=== PATIENT | female | born 1990 | race Caucasian/White ===

== ENCOUNTER → 2017-07-08 | Outpatient (CLI) | payer OTHER ==
[2013-12-19 16:31] VITALS: BMI 29.1
[~2017-07-08] MED LIST: AMOX-559 PO; CIPR-344 PO; CRAN500T; DOCO200C PO; HYDR-6018 PR; IBUP800T37 PO; Lanolin TP; NITR-105 PO; ONDA4TAB PO; PREN-75 PO; SULF-198 PO; TUCKS TP; [UNRECOGNIZED DRUG - REMARK]
== END ==
LOC: LAB 09:21
PROVIDERS: ATTEND Obstetrics & Gynecology
DX: S30.821A Blister (nonthermal) of abdominal wall, initial encounter (principal)
CPT/HCPCS: 87252; 87253

== ENCOUNTER → 2017-08-01 | Outpatient (CLI) | payer OTHER ==
[2013-12-19 16:31] VITALS: BMI 29.1
--- NOTE | 2017-08-01 13:46 | RADIOLOGY IMAGING REPORT ---
FACILITY: [facility] - [place] PATIENT NAME: Mehrdad Trejo : 1990 MR: [id number] V: [id number] EXAM DATE: ORDERING PHYSICIAN: EVELIN JONES TECHNOLOGIST: Location: [facility] [place] Patient: Mehrdad Trejo : 1990 Visit/Account:[id number] Date of Sevice: 08/01/2017 OB ANATOMICAL SURVEY HISTORY: Anatomic survey COMPARISON: None. TECHNIQUE: Transabdominal imaging was performed for assessment of the fetus and maternal pelvic s tructures. Transvaginal imaging was not performed. FINDINGS: Intrauterine gestations: One. presentation: Cephalic. heart rate: 149 bpm. Amniotic fluid volume: Normal; DAVID 12.2 cm; MVP 3.5 cm. Placenta: Posterior. Uterus: Gravid, otherwise grossly unremarkable where visualized. Maternal adnexa/ovaries: Grossly unremarkable, ovaries not visualized. Cervix: Grossly long and closed. Gestational Parameters: BPD: 4.3 HC: 16.7 AC: 14.7 FL: 3.3 Average ultrasound age (AUA): 19 weeks/ five days Estimated age based on LMP: 19 weeks/ five days Estimated weight (EFW): 325 grams +/- 48 grams Anatomic Survey: Intracranial structures, 4-chamber heart, stomach, kidneys, urinary bladder, spine, 3-vessel cord and cord insertion are unremarkable. Two upper and two lower extremities visualized. IMPRESSION: Single viable fetus in cephalic presentation with an estimated gestational age of 19 weeks and five d ays. Estimated weight 325 g +/- 40 8 g Report Dictated By: Bernice King MD at 08/01/2017 1:38 PM Report E-Signed By: Bernice King MD at 08/01/2017 1:42 PM WSN:[email or web address]
== END ==
LOC: RAD 08:51
PROVIDERS: ATTEND Obstetrics & Gynecology
DX: Z02.9 Encounter for administrative examinations, unspecified (principal)
CPT/HCPCS: 76811

== ENCOUNTER → 2017-09-27 | Outpatient (CLI) | payer OTHER ==
[2013-12-19 16:31] VITALS: BMI 29.1
[~2017-09-27] MED LIST changes: +DIPH0.5D12 IM
[2017-09-27 14:33] LABS: PLATELET COUNT, AUTOMATED 295 K/uL (150-450)
== END ==
LOC: LAB 08:02
PROVIDERS: ATTEND Obstetrics & Gynecology
DX: Z34.90 Encounter for supervision of normal pregnancy, unspecified, unspecified trimester (principal)
CPT/HCPCS: 36415; 82950; 85025

== ENCOUNTER → 2017-11-24 | Outpatient (CLI) | payer OTHER ==
[2013-12-19 16:31] VITALS: BMI 29.1
[~2017-11-24] MED LIST changes: -PREN-75 PO; +PREN1TAB29 PO; +VALA500T66 PO
== END ==
LOC: LAB 08:26
PROVIDERS: ATTEND Student in an Organized Health Care Education/Training Program
DX: Z34.93 Encounter for supervision of normal pregnancy, unspecified, third trimester (principal)
CPT/HCPCS: 87081

== ENCOUNTER 2017-12-07 10:20 | Outpatient (CLI) | payer OTHER ==
[~2017-12-07] VITALS: Ht 167.6 cm; Wt 88.0 kg
[2017-12-07 10:50] VITALS: BP 133/88; Ht 167.6 cm; Wt 88.0 kg
== END 2017-12-07 11:28 | disposition home or self-care (01) ==
LOC: L&D 10:20 → OB 10:20 → UNDOADMIN 10:20 → OB 10:20 → L&D 11:28 → UNDODISIN 11:28 → EDSTATUS 12-08 14:14
PROVIDERS: ATTEND Obstetrics & Gynecology
DX: O47.1 False labor at or after 37 completed weeks of gestation (principal); Z3A.38 38 weeks gestation of pregnancy
CPT/HCPCS: 84112; 99213

== ENCOUNTER 2017-12-17 17:35 | Inpatient (IN) | payer OTHER ==
[~2017-12-17] VITALS: Ht 167.6 cm; Wt 86.2 kg
[2017-12-17] MEDS ORDERED: LR(*) 1000 ML BAG 1,000 ML IV PRN (17:49)
[2017-12-17] MEDS ORDERED: OXYTOCIN 30 UNIT/D5LR 500 ML 500 ML IV PRN (17:49)
[2017-12-17] MEDS ORDERED: DLR(*) 1000 ML BAG 1,000 ML IV PRN (17:49)
[2017-12-17] MEDS ORDERED: FAMOTIDINE(*) 20MG/50ML PREMIX 50 ML IVPB PRN (17:49)
[2017-12-17] MEDS ORDERED: LIDOCAINE/PF 2% 200MG/10ML AMP 200 MG/10 ML AMPUL EPI PRN (17:50)
[2017-12-17] MEDS ORDERED: LIDO/EPI 2% MPF 1:200,000 20ML EPI PRN (17:50)
[2017-12-17] MEDS ORDERED: FENTANYL/ROPIVACAINE 100 ML BAG EPI PRN (17:50)
[2017-12-17] MEDS ORDERED: BUPIVACAINE 0.25% MPF INJ EPI PRN (17:50)
[2017-12-17] MEDS ORDERED: cefOXitin/DEX(*) 2GM/50ML PREM 50 ML IVPB PRN (17:50)
[2017-12-17] MEDS ORDERED: fentaNYL CITR 100 MCG/2 ML AMP IVP PRN (17:50)
[2017-12-17] MEDS ORDERED: FLUSH 10 ML SYR IVP PRN (17:50)
[2017-12-17] MEDS ORDERED: METOCLOPRAMIDE 10 MG/2 ML SDV IVP PRN (17:50)
[2017-12-17] MEDS ORDERED: fentaNYL CITR 100 MCG/2 ML AMP IT PRN (17:50)
[2017-12-17] MEDS ORDERED: BUPIVACAINE 0.5% INJ 30ML VIAL EPI PRN (17:50)
[2017-12-17] MEDS ORDERED: LIDOCAINE 1% LOCAL 300 MG/30ML INJ PRN (17:50)
[2017-12-17 18:00] VITALS: BP 146/87; Ht 167.6 cm; Wt 86.2 kg
[2017-12-17] MEDS ORDERED: LR(*) 1000 ML BAG 1,000 ML IV ONE (18:00)
[2017-12-17] MEDS ORDERED: EPIDURAL KEYS XX PRN (18:00)
[2017-12-17 18:36] LABS: PLATELET COUNT, AUTOMATED 275 K/uL (150-450)
[2017-12-17] MEDS ORDERED: GLYCERIN/WITCH HAZEL LEAF 1 PK TP PRN (18:40)
[2017-12-17] MEDS ORDERED: ACETAMINOPHEN 325 MG TAB PO PRN (18:40)
[2017-12-17] MEDS ORDERED: BENZOCAINE 20% 60 ML BTL TP PRN (18:40)
[2017-12-17] MEDS ORDERED: HYDROCORTISONE 2.5% CR 30GM TB PR PRN (18:40)
[2017-12-17] MEDS ORDERED: APAP/HYDROCODONE 325/5 TAB PO PRN (18:40)
[2017-12-17] MEDS ORDERED: MAGNESIUM HYDROXIDE* 30ML UDCP PO PRN (18:40)
[2017-12-17] MEDS ORDERED: LANOLIN OINT 7 GM TUBE TP PRN (18:40)
--- NOTE | 2017-12-17 18:47 | OB Delivery Note ---
Delivery Note Vaginal Delivery Type: Spont. Vaginal Delivery Delivery Time: 18:26 Estimated Gestational Age(wks): 39 Delivery Anesthesia: Other (SPINAL) Sex: Male [place] Apgars: 1 Minute (8), 5 Minute (9) Estimated Blood Loss: 50 Delivery Complications: Precipitous Notes: Presented in active labor, 4 cm. Precipitously delivered shortly thereafter. MARCELLE position with compound presentation but shoulders delivered without significant manipulation over intact perineum. Placenta delivered spontaneous and intact. No complications. Seating Upholsterer in Attendence: No Copies to: BAYLEE ROUSSEAU MD ; BAYLEE ROUSSEAU MD Dec 17, 2017 18:47
--- NOTE | 2017-12-17 18:49 | History & Physical ---
History of Present Illness Age of Patient: 27 : 2 Para or TPAL: 1 Estimated Gestational Age: 39 Chief Complaint labor History of Present Illness Presented in active labor and delivered precipitously. Care by IMG. Please see electronic records. History Allergies: Coded Allergies: No Known Drug Allergies (Unverified , 06/06/13) Family History: FH: liver disease FATHER FH: renal failure MOTHER No pertinent family history BROTHER OR SISTER BROTHER OR SISTER Pyelonephritis MOTHER Med Rec Home Meds Active Scripts Valacyclovir Hcl (VALTREX) 500 Mg Tablet, 500 MG PO BID, #66 TAB 1 Refill Prov:CHESTER SMART 11/24/17 Vit#96/Ferrous Fum/Fa ( TABLET) 1 Each Tab, 1 EACH PO DAILY for 30 Days, TAB Prov:STACIE MENDEZ MD 12/20/13 Review of Systems All Systems Reviewed/Normal: Yes, Except as Noted Exam General Exam General Apperance: Alert/Awake/No Acute Distress Neuro: No Gross deficits Eyes: Normal Extraocular Movement & Vison Cardiovascular: Regular Rate and Rhythm Respiratory: No Respiratory Distress, Clear to Auscultation Abdomen: Soft, Non-Tender, Non-Distended Extremities: No Cyanosis,Clubbing or Edema Integumentary: Skin Intact without Lesions or Rash Psychological: Alert & Oriented X3, Appropriate Mood & Affect Cervical Dialation: 10 Cervical Effacement (%): 100 Cervical Consistency: Soft Station: +2 Presentation: Vertex Fetus Heart Tone Variabilty: Moderate FHT Accelerations: 15X15 FHT Decelerations: Variable FHT Category: II Medical Decision Making VTE Prophylasis: Adult Deep Vein Thrombosis/Pulmonary: No Pharmacological Contraindicati: Pt at Low Risk for VTE Mechanical Contraindications: Pt at Low Risk for VTE Assessment and Plan TEACHER PRESCHOOL Plan: Routine Post- Care Problems: (1) 39 weeks gestation of (2) Precipitous delivery, delivered (current hospitalization) BAYLEE ORUSSEAU MD Dec 17, 2017 18:49
--- NOTE | 2017-12-17 18:54 | Procedure Note ---
Anesthetic Placement Note Anesthesia Plan: SAB Permit for Anesthesia Signed: No (Verbal consent due to time constraints) Anesthesia Technique: Lateral Anesthesia Prep: Betadine Interspace: L 3-4 Local Anesthetic: 1% Lidocaine, 25 Gauge Needle Amount Local - cc's: 2 Anesthesia Needle: 25g Pencan w/Introducer Anesthesia Attempts: 1 Cerebral Spinal Fluid: Yes, Clear Comment: Pt. progressed from 4cm dilation to 9-10 quickly, delivery imminent. Pt agrees to try SAB to decrease pain during delivery. Sterile gloves/prep/drape, lidocaine local L3-4, introducer, 25ga Pencan midline approach, clear FFCSF, no heme or paresthesia, positive aspiration. Hyperbaric Bupivacaine 6mg injected, needle removed, pt positioned Rand's then lithotomy, tolerated well. Anesthesia Medications: Intrathecal Dose: mg Spinal Bupivicaine (6), Time (1809) Complications: None (Moderate analgesia, minimal motor block.) TC TRIVEDI STORAGE ENGINEER Dec 17, 2017 18:54
[2017-12-17 19:30] VITALS: BP 126/62
[2017-12-17] MEDS ORDERED: OXYTOCIN 30 UNIT/D5LR 500 ML 500 ML IV ONE (19:55)
[2017-12-17 19:57] VITALS: BP 117/69
[2017-12-17 20:22] VITALS: BP 134/61
[2017-12-17] MEDS: IBUPROFEN 800 MG TAB PO SCH (21:22)
[2017-12-17] MEDS: DOCUSATE CALCIUM 240 MG CAP PO SCH (21:22)
[2017-12-17 21:30] VITALS: BP 136/66
[2017-12-17 22:30] VITALS: BP 120/68
[2017-12-18 00:07] VITALS: BP 117/60
[2017-12-18 00:35] VITALS: BP 118/60
[2017-12-18 03:15] VITALS: BP 115/59
--- NOTE | 2017-12-18 04:55 | Anesthesia OB Pre-Anes Eval ---
History of Present Illness Anesthesia Start Date: Dec 17, 2017 Anesthesia Start Time: 18:05 OB Anesthesia Diagnosis: spontaneous labor, spontaneous ROM EDC: Dec 21, 2017 : 2 Para: 1 Pain Ratin Result Diagram: 12/17/17 1803 Height (Inches): 66.00 Weight (Pounds): 190 BMI Calculated: 30.66 Past Medical History Medical History: no pertinent history Surgical History: no surgical history Previous Anesthesia: epidural Attended Childbirth Classes?: No Hx Anesthesia Reactions: No Hx Family Anesthesia Reaction: No Home Meds Active Scripts Valacyclovir Hcl (VALTREX) 500 Mg Tablet, 500 MG PO BID, #66 TAB 1 Refill Prov:CHESTER SMART 11/24/17 Vit#96/Ferrous Fum/Fa ( TABLET) 1 Each Tab, 1 EACH PO DAILY for 30 Days, TAB Prov:STACIE MENDEZ MD 12/20/13 Allergies: Coded Allergies: No Known Drug Allergies (Unverified , 06/06/13) Anesthesia OB ROS Airway Class: l GI ROS: clear liquids, ice chips Last Solids Date: Dec 17, 2017 Last Solids Time: 14:00 ROS: Herpes (???) ASA Classification: 2 Assessment and Plan Anesthesia Plan: SAB Assessment Delivery imminent, plan SAB if able. Anesthesia Stop Day: Dec 17, 2017 Anesthesia Stop Time: 18:15 TC TRIVEDI CRNA Dec 18, 2017 04:55
[2017-12-18] MEDS: IBUPROFEN 800 MG TAB PO SCH ×3 (05:33→20:30)
[2017-12-18 06:53] VITALS: BP 114/63
--- NOTE | 2017-12-18 07:03 | OB/GYN Progress Note ---
OB Subjective Progress Notes Subjective Doing well. Pain controlled and bleeding light. Voiding well. GI: NEG Nausea : Voiding Well Pain: Mild OB Objective Physical Exam Vital Signs Date Time Temp Pulse Resp B/P (MAP) Pulse Ox O2 Delivery O2 Flow Rate FiO2 12/18/17 03:15 97.3 65 20 115/59 (77) 95 Room Air Intake and Output 12/18/17 07:00 Intake Total 1500 ml Output Total 3500 ml Balance -2000 ml Intake IV Total 1500 ml Output Urine Total 3500 ml # Voids 5 General Appearance: Alert/Awake/No Acute Distress Neurological: No Gross deficits Eyes: Normal Extraocular Movement & Vison Cardiovascular: Normal Rhythm & Peripheral Pulses, Regular Rate and Rhythm Respiratory: No Respiratory Distress, Clear to Auscultation Abdomen: Soft, Non-Tender, Non-Distended, Fundus Firm Extremities: No Cyanosis,Clubbing or Edema Integumentary: Skin Intact without Lesions or Rash Psychological: Alert & Oriented X3, Appropriate Mood & Affect Result Diagram: 12/18/17 0603 Assessment and Plan CUSTOMER SERVICE ADMINISTRATOR Plan: Routine Post-Op Care, Discharge Home Today Problems: (1) 39 weeks gestation of (2) Precipitous delivery, delivered (current hospitalization) (3) care and examination immediately after delivery BAYLEE ROUSSEAU MD Dec 18, 2017 07:03
[2017-12-18] MEDS ORDERED: IBUP800T37 PO (07:04)
--- NOTE | 2017-12-18 07:07 | OB/GYN Discharge Summary ---
Discharge Summary Reason for Hosp/Final Diag: (1) 39 weeks gestation of (2) Precipitous delivery, delivered (current hospitalization) (3) care and examination immediately after delivery Lates Vital Signs Vital Signs Date Time Temp Pulse Resp B/P (MAP) Pulse Ox O2 Delivery O2 Flow Rate FiO2 12/18/17 03:15 97.3 65 20 115/59 (77) 95 Room Air Weight (Pounds): 190 Result Diagram: 12/18/17 0603 Condition: Improved Discharge: Home, Self Nursing Home Meds Active Scripts Valacyclovir Hcl (VALTREX) 500 Mg Tablet, 500 MG PO BID, #66 TAB 1 Refill Prov:CHESTER SMART DO 11/24/17 Vit#96/Ferrous Fum/Fa ( TABLET) 1 Each Tab, 1 EACH PO DAILY for 30 Days, TAB Prov:STACIE MENDEZ MD 12/20/13 Follow up Referrals: [employer] SUPERVISOR - In 6 Weeks @ [phone] Discharge Diet: As Tolerates Discharge Activity: As Tolerates, No Heavy Lifting x 6 wks, No Heavy Lifting > 10lb, Pelvic Rest Copies to: BAYLEE ROUSSEAU MD ; BAYLEE ROUSSEAU MD Dec 18, 2017 07:06
[2017-12-18] MEDS: DOCUSATE CALCIUM 240 MG CAP PO SCH ×2 (08:59→20:30)
[2017-12-18] MEDS ORDERED: INFLUENZA VIRUS VAC 0.5ML SYR IM ONLY ONE (09:00)
[2017-12-18] MEDS ORDERED: MEASLES,MUMP,RUBELLA VAC 0.5ML SUBQ ONE (09:00)
[2017-12-18] MEDS ORDERED: DIPHTH/TETANUS/ACEL. PERTUSSIS IM ONLY ONE (09:00)
[2017-12-18 11:51] VITALS: BP 121/66
--- NOTE | 2017-12-18 13:56 | Anesthesia Post Eval Note ---
Anesthesia Post Eval Note Janene, afebrile. Pt able to participate in Eval: Yes Cardiovascular Status: Satisfactory Respiratory Status: Satisfactory Pain Managment: Satisfactory PO Nausea/Vomiting: Satisfactory Temperature Management: Satisfactory Mental Status: Satisfactory, Alert, Oriented X3 Post-Op Hydration Status: Satisfactory, Tolerating PO Well, Voiding w/o Difficulty Anesthesia Type: SAB Anesthesia Tolerance: Ambulatory without symptoms PDPH, no apparent complications. TC TRIVEDI STUDENT WORKER Dec 18, 2017 13:56
[2017-12-18 19:15] VITALS: BP 135/76
== END 2017-12-18 20:35 | disposition home or self-care (01) | DRG 775 ==
LOC: OB 17:35
PROVIDERS: ADMIT Obstetrics & Gynecology; ATTEND Obstetrics & Gynecology
PROC: 10E0XZZ Delivery of Products of Conception, External Approach (ICD-10-PCS; principal; 2017-12-17)
DX: O62.3 Precipitate labor (principal); O32.6XX0 Maternal care for compound presentation, not applicable or unspecified; Z3A.39 39 weeks gestation of pregnancy; Z37.0 Single live birth
CPT/HCPCS: 36415; 85025; 85027; 86850; 86900; 86901; J2590; J7120